=== PATIENT | male | born 1990 | race Hispanic/Latino ===

== ENCOUNTER 2019-11-21 22:57 | Emergency (ER) | payer OTHER, SELFPAY ==
[2019-11-21] MEDS ORDERED: ACETAMINOPHEN 500 MG TAB ONE (23:41)
[2019-11-22] MEDS ORDERED: NA CHLORIDE 0.9% 1,000 ML ONE (00:42)
[2019-11-22] MEDS ORDERED: IPRATROPIUM BROM 0.5MG/2.5ML ONE (01:30)
[2019-11-22] MEDS ORDERED: LEVALBUTEROL 1.25 MG/3 ML NEB ONE (01:31)
[2019-11-22 01:44] LABS: ALT/SGPT 86 U/L (12-78); AST/SGOT 41 U/L (15-37); Albumin 3.6 g/dL (3.4-5.0); Alkaline Phosphatase 99 U/L (45-117); BUN Blood Urea Nitrogen 11 mg/dL (7-18); Bicarbonate 24 mmol/L (21-32); Bilirubin Direct 0.1 mg/dL (0-0.2); Bilirubin Total 0.4 mg/dL (0.2-1.0); CKMB Creatine Kinase MB < 1.0 ng/mL (0.3-3.6); Creatine Phosphokinase 208 U/L (39-308); Glucose Level 128 mg/dL (74-106); Lipase 54 U/L (73-393); Potassium 3.4 mmol/L (3.5-5.1); Protein, Total 7.7 g/dL (6.4-8.2); Sodium Level 137 mmol/L (136-145); Troponin (Emerg Dept Use Only) < 0.02 ng/mL (0.0-0.045)
[2019-11-22 02:04] LABS: Urine Blood NEGATIVE (NEG); Urine Glucose NEGATIVE (NEG); Urine Protein 1+ (NEG); Urine Specific Gravity 1.025 (1.005-1.030); Urine pH 5.5 (5.0-7.0)
[2019-11-22] MEDS ORDERED: CEFTRIAXONE/SWI 1gm 1 GM/10 ML SYR ONE (02:11)
[2019-11-22 02:24] LABS: Absolute Lymphocytes (CBC) 1.4 K/uL (0.7-4.9); Basophils % 0.5 % (0-1.3); Hematocrit 43.3 % (39.6-49.0); Lymphocytes % 10.6 % (15.3-44.8); MPV 9.7 fL (7.6-11.3); RBC Red Blood Cell Count 4.66 M/uL (4.33-5.43)
--- NOTE | 2019-11-22 02:27 | EDPHYS ---
Physician Documentation [facility] Name: Adalid Shen Age: 29 yrs Sex: Male : 1990 Arrival Date: 11/21/2019 Time: 22:58 Bed 14 Private MD: ED Physician Abilio Faye HPI: 11/22 00:44 This 29 yrs old Male presents to ER via Ambulatory with complaints of Fever, kb Cough, Chest Wall Pain. 00:44 The patient or guardian reports cough, that is intermittent, described as moderate, kb with no sputum, flu symptoms, low-grade fever, myalgias. Onset: The symptoms/episode began/occurred 4 day(s) ago. Severity of symptoms: At their worst the symptoms were moderate, in the emergency department the symptoms are unchanged. Modifying factors: The symptoms are alleviated by nothing, the symptoms are aggravated by nothing. Associated signs and symptoms: Pertinent positives: fever, rhinorrhea, sore throat. The patient has not experienced similar symptoms in the past. The patient has not recently seen a physician. Historical: - Allergies: 11/21 23:23 No Known Allergies; - Home Meds: 23:23 None [Active]; - PMHx: 23:23 None; - PSHx: 23:23 None; - Immunization history:: Adult Immunizations not up to date. - Social history:: Smoking status: Patient/guardian denies using tobacco. - Ebola Screening: : Patient negative for fever greater than or equal to 101.5 degrees Fahrenheit, and additional compatible Ebola Virus Disease symptoms Patient denies exposure to infectious person. ROS: 11/22 00:43 Neck: Negative for injury, pain, and swelling, Cardiovascular: Negative for chest pain, kb palpitations, and edema, Abdomen/GI: Negative for abdominal pain, nausea, vomiting, diarrhea, and constipation, Back: Negative for injury and pain, MS/Extremity: Negative for injury and deformity, Skin: Negative for injury, rash, and discoloration, Neuro: Negative for headache, weakness, numbness, tingling, and seizure. Constitutional: Positive for body aches, chills, fatigue, fever, malaise, Negative for poor PO intake, weight loss. ENT: Positive for sore throat. Respiratory: Positive for cough, Negative for dyspnea on exertion, hemoptysis, orthopnea, pleurisy, shortness of breath, sputum production, wheezing. Exam: 00:43 Head/Face: Normocephalic, atraumatic. ENT: Nares patent. No nasal discharge, no kb septal abnormalities noted. Tympanic membranes are normal and external auditory canals are clear. Oropharynx with no redness, swelling, or masses, exudates, or evidence of obstruction, uvula midline. Mucous membranes moist. Neck: Trachea midline, no thyromegaly or masses palpated, and no cervical lymphadenopathy. Supple, full range of motion without nuchal rigidity, or vertebral point tenderness. No Meningismus. Chest/axilla: Normal chest wall appearance and motion. Nontender with no deformity. No lesions are appreciated. Cardiovascular: Regular rate and rhythm with a normal S1 and S2. No gallops, murmurs, or rubs. Normal PMI, no JVD. No pulse deficits. Respiratory: Lungs have equal breath sounds bilaterally, clear to auscultation and percussion. No rales, rhonchi or wheezes noted. No increased work of breathing, no retractions or nasal flaring. Abdomen/GI: Soft, non-tender, with normal bowel sounds. No distension or tympany. No guarding or rebound. No evidence of tenderness throughout. Skin: Warm, dry with normal turgor. Normal color with no rashes, no lesions, and no evidence of cellulitis. MS/ Extremity: Pulses equal, no cyanosis. Neurovascular intact. Full, normal range of motion. Neuro: Awake and alert, GCS 15, oriented to person, place, time, and situation. Cranial nerves II-XII grossly intact. Motor strength 5/5 in all extremities. Sensory grossly intact. Cerebellar exam normal. Normal gait. 00:43 Constitutional: The patient appears alert, awake, uncomfortable. Vital Signs: 11/21 23:15 BP 149 / 94; Pulse 105; Resp 18; Temp 101.7; Pulse Ox 97% ; Weight 90.72 kg; Height 5 wh ft. 7 in. (170.18 cm); 11/22 00:30 BP 141 / 89; Pulse 102; Resp 18; Pulse Ox 96% ; wh 01:30 BP 128 / 82; Pulse 87; Resp 18; Temp 99.4; Pulse Ox 97% ; wh 02:45 BP 113 / 81; Pulse 82; Resp 18; Temp 98.8; Pulse Ox 97% ; 11/21 23:15 Body Mass Index 31.32 (90.72 kg, 170.18 cm) MDM: 11/21 23:00 Patient medically screened. kb 11/22 00:44 Data reviewed: vital signs, nurses notes. Data interpreted: Pulse oximetry: on room air kb is 96 %. Interpretation: normal. 02:16 Counseling: I had a detailed discussion with the patient and/or guardian regarding: the kb historical points, exam findings, and any diagnostic results supporting the discharge/admit diagnosis, lab results, radiology results, the need for outpatient follow up, a family practitioner, to return to the emergency department if symptoms worsen or persist or if there are any questions or concerns that arise at home. 11/21 23:01 Order name: Flu; Complete Time: 00:15 kb 11/21 23:26 Order name: Strep; Complete Time: 00:15 wh 11/22 00:16 Order name: Troponin (emerg Dept Use Only); Complete Time: 01:48 kb 11/22 00:16 Order name: Lactate; Complete Time: 01:42 kb 11/22 00:16 Order name: Basic Metabolic Panel; Complete Time: 01:48 kb 11/22 00:16 Order name: Blood Culture Adult (2) kb 11/22 00:16 Order name: CBC with Diff; Complete Time: 02:25 kb 11/22 00:16 Order name: Ckmb; Complete Time: 01:48 kb 11/22 00:16 Order name: CPK; Complete Time: 01:48 kb 11/22 00:16 Order name: LFT's; Complete Time: 01:48 kb 11/22 00:16 Order name: Lipase; Complete Time: 01:48 kb 11/22 00:16 Order name: Procalcitonin; Complete Time: 02:24 kb 11/22 00:16 Order name: Urine Microscopic Only; Complete Time: 02:38 kb 11/22 00:26 Order name: Throat Culture EDMS 11/22 00:01 Order name: Chest Pa And Lat (2 Views) XRAY kb 11/22 00:16 Order name: Cardiac monitoring; Complete Time: 01:26 kb 11/22 00:16 Order name: EKG - Nurse/Tech; Complete Time: 01:26 kb 11/22 00:16 Order name: IV Saline Lock - Large Bore; Complete Time: 01:26 kb 11/22 00:16 Order name: Labs collected and sent; Complete Time: :26 kb 11/22 00:16 Order name: O2 Per Protocol; Complete Time: 01:27 kb 11/22 00:16 Order name: O2 Sat Monitoring; Complete Time: 01:27 kb 11/22 01:26 Order name: Urine Dipstick--Ancillary (enter results); Complete Time: 02:04 cm6 11/22 01:30 Order name: Glucose, Ancillary Testing; Complete Time: 01:38 EDMS 11/22 00:16 Order name: Urine Dipstick-Ancillary (obtain specimen); Complete Time: :27 kb Administered Medications: 11/21 23:37 Drug: Tylenol 1000 mg Route: PO; 11/22 01:26 Follow up: Response: No adverse reaction; Temperature is decreased 01:00 Drug: NS 0.9% 1000 ml Route: IV; Rate: 1000 ml; Site: left forearm; 02:43 Follow up: Response: No adverse reaction; IV Status: Completed infusion 01:26 Drug: Xopenex 1.25 mg Route: Inhalation; 02:44 Follow up: Response: No adverse reaction 01:26 Drug: AtroVENT Aerosol 0.5 mg Route: Inhalation; 02:44 Follow up: Response: No adverse reaction 02:11 Drug: Rocephin 1 grams Route: IV; Rate: calculated rate; Site: left forearm; 02:43 Follow up: Response: No adverse reaction; IV Status: Completed infusion 02:43 Drug: Zithromax 500 mg Route: PO; 03:55 Follow up: Response: No adverse reaction 02:43 Drug: predniSONE 40 mg Route: PO; 03:55 Follow up: Response: No adverse reaction Disposition: 07:01 Co-signature as Attending Physician, Abilio Faye MD. rn Disposition: 11/22/19 02:26 Discharged to Home. Impression: Pneumonia, unspecified organism. - Condition is Stable. - Discharge Instructions: Community-Acquired Pneumonia, Adult, [id number]. - Prescriptions for Prednisone 20 mg Oral Tablet - take 1 tablet by ORAL route once daily for 5 days; 5 tablet. Albuterol Sulfate 90 mcg/actuation - inhale 1-2 puff by INHALATION route every 4-6 hours; 1 Inhaler. Zithromax 500 mg Oral Tablet - take 1 tablet by ORAL route once daily for 5 days; 5 tablet. - Medication Reconciliation Form, Thank You Letter, Antibiotic Education, Prescription Opioid Use, Work release form form. - Follow up: Emergency Department; When: As needed; Reason: Worsening of condition. Follow up: Private Physician; When: 2 - 3 days; Reason: Recheck today's complaints, Continuance of care, Re-evaluation by your physician. Signatures: Dispatcher [employer] EDFina Ledesma, COATING TECHNICIAN-C COATING TECHNICIAN-Ckb Abilio Faye MD MD rn [place], Winsy Corrections: (The following items were deleted from the chart) 02:57 02:26 11/22/2019 02:26 Discharged to Home. Impression: Pneumonia, unspecified organism. Condition is Stable. Discharge Instructions: Community-Acquired Pneumonia, Adult, [id number]. Prescriptions for Prednisone 20 mg Oral Tablet - take 1 tablet by ORAL route once daily for 5 days; 5 tablet, Albuterol Sulfate 90 mcg/actuation - inhale 1-2 puff by INHALATION route every 4-6 hours; 1 Inhaler, Zithromax 500 mg Oral Tablet - take 1 tablet by ORAL route once daily for 5 days; 5 tablet. and Forms are Medication Reconciliation Form, Thank You Letter, Antibiotic Education, Prescription Opioid Use. Follow up: Emergency Department; When: As needed; Reason: Worsening of condition. Follow up: Private Physician; When: 2 - 3 days; Reason: Recheck today's complaints, Continuance of care, Re-evaluation by your physician. kb
--- NOTE | 2019-11-22 02:27 | ER ---
Nurse's Notes [facility] Name: Adalid Shen Age: 29 yrs Sex: Male : 1990 Arrival Date: 11/21/2019 Time: 22:58 Bed 14 Private MD: Diagnosis: Pneumonia, unspecified organism Presentation: 11/21 23:05 Presenting complaint: Patient states: Cough, fever and congestion that started wh . Pt states having chest tightness due to coughing so much. Transition of care: patient was not received from another setting of care. Onset of symptoms was November 19, 2019. Risk Assessment: Do you want to hurt yourself or someone else? Patient reports no desire to harm self or others. Initial Sepsis Screen: Does the patient meet any 2 criteria? Temp <36.0*C (96.8*F)) or > 38.3*C (100.9*F). HR > 90 bpm. Does the patient have a suspected source of infection? Yes: Productive cough/pneumonia If YES to both, name of provider notified: Fina HART. Care prior to arrival: None. 23:05 Method Of Arrival: Ambulatory 23:05 Acuity: NALINI 3 Historical: - Allergies: 23:23 No Known Allergies; - Home Meds: 23:23 None [Active]; - PMHx: 23:23 None; - PSHx: 23:23 None; - Immunization history:: Adult Immunizations not up to date. - Social history:: Smoking status: Patient/guardian denies using tobacco. - Ebola Screening: : Patient negative for fever greater than or equal to 101.5 degrees Fahrenheit, and additional compatible Ebola Virus Disease symptoms Patient denies exposure to infectious person. Screenin:22 Abuse screen: Denies threats or abuse. Denies injuries from another. Nutritional screening: No deficits noted. Tuberculosis screening: No symptoms or risk factors identified. Fall Risk None identified. Assessment: 23:23 General: Appears in no apparent distress. Behavior is calm, cooperative, appropriate wh for age. Pain: Complains of pain in Sore throat Pain does not radiate. Pain began 2-3 days ago. Neuro: Level of Consciousness is awake, alert, obeys commands, Oriented to person, place, time, situation, Appropriate for age. Cardiovascular: Reports chest tightness from coughing Heart tones S1 S2. Respiratory: Airway is patent Respiratory effort is even, unlabored, Respiratory pattern is regular, symmetrical, Breath sounds are clear bilaterally. Respiratory: Reports cough that is. GI: Abdomen is flat, non-distended. : No signs and/or symptoms were reported regarding the genitourinary system. EENT: Throat is pink. Derm: Skin is intact, is healthy with good turgor, Skin is pink, warm \T\ dry. normal. Musculoskeletal: Circulation, motion, and sensation intact. 11/22 00:30 Reassessment: Patient appears in no apparent distress at this time. No changes from previously documented assessment. Patient and/or family updated on plan of care and expected duration. Pain level reassessed. Patient is alert, oriented x 3, equal unlabored respirations, skin warm/dry/pink. 01:40 Reassessment: Patient appears in no apparent distress at this time. No changes from previously documented assessment. Patient and/or family updated on plan of care and expected duration. Pain level reassessed. Patient is alert, oriented x 3, equal unlabored respirations, skin warm/dry/pink. Patient states feeling better. Patient states symptoms have improved. 02:50 Reassessment: Patient appears in no apparent distress at this time. No changes from previously documented assessment. Patient and/or family updated on plan of care and expected duration. Pain level reassessed. Patient is alert, oriented x 3, equal unlabored respirations, skin warm/dry/pink. Patient denies pain at this time. Patient states feeling better. Patient states symptoms have improved. Vital Signs: 11/21 23:15 BP 149 / 94; Pulse 105; Resp 18; Temp 101.7; Pulse Ox 97% ; Weight 90.72 kg; Height 5 wh ft. 7 in. (170.18 cm); 11/22 00:30 BP 141 / 89; Pulse 102; Resp 18; Pulse Ox 96% ; wh 01:30 BP 128 / 82; Pulse 87; Resp 18; Temp 99.4; Pulse Ox 97% ; wh 02:45 BP 113 / 81; Pulse 82; Resp 18; Temp 98.8; Pulse Ox 97% ; 11/21 23:15 Body Mass Index 31.32 (90.72 kg, 170.18 cm) ED Course: 11/21 22:58 Patient arrived in ED. ds1 22:59 Louise Stuart is Primary Nurse. 23:00 Fina Tobias FNP-C is PHCP. kb 23:00 Abilio Faye MD is Attending Physician. kb 23:22 Triage completed. 23:24 Arm band placed on right wrist. 23:25 Patient has correct armband on for positive identification. Bed in low position. Call light in reach. Side rails up X 1. Pulse ox on. NIBP on. 23:25 Patient maintains SpO2 saturation greater than 95% on room air. 11/22 00:30 Inserted saline lock: 22 gauge in left forearm, using aseptic technique. Blood wh collected. 00:39 Chest Pa And Lat (2 Views) XRAY In Process Unspecified. EDMS 02:55 No provider procedures requiring assistance completed. IV discontinued, intact, bleeding controlled, No redness/swelling at site. Administered Medications: 11/21 23:37 Drug: Tylenol 1000 mg Route: PO; 11/22 01:26 Follow up: Response: No adverse reaction; Temperature is decreased 01:00 Drug: NS 0.9% 1000 ml Route: IV; Rate: 1000 ml; Site: left forearm; 02:43 Follow up: Response: No adverse reaction; IV Status: Completed infusion 01: Drug: Xopenex 1.25 mg Route: Inhalation; 02:44 Follow up: Response: No adverse reaction 01:26 Drug: AtroVENT Aerosol 0.5 mg Route: Inhalation; 02:44 Follow up: Response: No adverse reaction 02:11 Drug: Rocephin 1 grams Route: IV; Rate: calculated rate; Site: left forearm; 02:43 Follow up: Response: No adverse reaction; IV Status: Completed infusion 02:43 Drug: Zithromax 500 mg Route: PO; 03:55 Follow up: Response: No adverse reaction 02:43 Drug: predniSONE 40 mg Route: PO; 03:55 Follow up: Response: No adverse reaction Outcome: 02:26 Discharge ordered by . kb 02:55 Discharged to home ambulatory. 02:55 Condition: stable 02:55 Discharge instructions given to patient, Instructed on discharge instructions, follow up and referral plans. medication usage, POC Demonstrated understanding of Prescriptions given X 3. 02:57 Patient left the ED. Signatures: Dispatcher [employer] Fina Milton, MAGEN-C SUPERVISOR [employer]-Justine Perkins ds1 Louise Stuart
[2019-11-22 02:28] LABS: Urine Bacteria <20 /HPF (NONE SEEN); Urine Culture Reflex Order NOT NEEDED; Urine Mucus 1+ /HPF (NONE SEEN); Urine RBC <5 /HPF (NONE SEEN)
[2019-11-22] MEDS ORDERED: predniSONE 20 MG TAB ONE (02:40)
[2019-11-22] MEDS ORDERED: AZITHROMYCIN 250 MG TAB ONE (02:40)
[2019-11-22 03:06] VITALS: BP 128/82; TEMP 99.4; O2SAT 97
--- NOTE | 2019-11-22 09:38 | RAD REPORT ---
EXAM DESCRIPTION: Zuleyma Paris (2 Views)11/22/2019 12:40 am CLINICAL HISTORY: Cough COMPARISON: None FINDINGS: The lungs appear clear of acute infiltrate. The heart is normal size IMPRESSION: No acute abnormalities displayed
--- NOTE | 2019-11-23 10:20 | EKG ---
Test Date: 2019-11-22 Test Time: 00:50:57 Personal Service Representative: STEF MEASUREMENT RESULTS: Intervals: Rate: 89 MI: 142 QRSD: 84 QT: 338 QTc: 411 [place]: P: 51 MI: 142 QRS: 203 T: 17 INTERPRETIVE STATEMENTS: Normal sinus rhythm Right superior axis deviation Abnormal ECG No previous ECG available for comparison Electronically Signed On 11-23-19 10:19:39 WALL STEAMER by Fred Garcia
== END 2019-11-22 02:57 | disposition home or self-care (01) ==
LOC: ER 22:57
DX: J18.9 Pneumonia, unspecified organism (principal)
CPT/HCPCS: 36415; 71046; 80048; 80076; 81003; 81015; 82550; 82553; 82947; 83605; 83690; 84145; 84484; 85025; 87040; 87070; 87081; 87804; 93005; 96361; 96365; 99285; J0696; J7030; J7512